=== PATIENT | male | born 1960 ===

== ENCOUNTER → 2018-07-19 | Outpatient (CLI) | payer OTHER ==
[2018-07-19 16:24] LABS: Calcium 8.7 mg/dL (8.5-10.1); Potassium 4.3 mmol/L (3.5-5.1)
[2018-07-19 16:27] LABS: BUN/Creatinine Ratio 13.5; Bilirubin, Total 0.5 mg/dL (0.2-1.0); Total Protein 7.8 g/dL (6.4-8.2)
[2018-07-19 16:28] LABS: Basophils # (auto) 0 uL; Basophils % (auto) 0.7 % (0.0-2.0); Eosinophils # (auto) 0.2 uL; Eosinophils % (auto) 3.5 % (0.0-7.0); Lymphocytes # (auto) 1.7 uL; Mean Corpuscular Hemoglobin 27.6 pg (28.0-32.0); Mean Corpuscular Hgb Conc. 31.9 g/dL (32.0-36.0); Mean Corpuscular Volume 86.6 fL (80.0-100.0); Monocytes # (auto) 0.5 uL; Monocytes % (auto) 8.7 % (0.0-12.0); Neutrophils # (auto) 3.6 uL; Neutrophils % (auto) 59.1 % (37.0-80.0); Platelet Count (auto) 183 10^3/uL (140-450); Red Blood Cells 5.07 10^6/uL (4.5-5.90); Red Cell Distribution Width 13.7 % (11.8-14.3)
== END | disposition home or self-care (01) ==
LOC: LAB 15:32
DX: N53.9 Unspecified male sexual dysfunction (principal)
CPT/HCPCS: 36415; 80053; 83036; 84153; 84403; 84443; 85025